=== PATIENT | male | born 1935 | race Caucasian/White ===

== ENCOUNTER 2021-06-08 08:37 | Inpatient (IN) | payer MEDICARE, BC ==
[2021-06-08 09:38] LABS: ALT (SGPT) 30 U/L (8-55); AST (SGOT) 31 U/L (5-34); Albumin 3.5 g/dL (3.4-4.8); Alkaline Phosphatase 104 U/L (40-110); Anion Gap 18 mmol/L (10-20); BUN (Urea Nitrogen) 19 mg/dL (8.4-25.7); Bilirubin, Total 1.3 mg/dL (0.2-1.2); Calc. Creatinine Clearance 0 mL/min (70-130); Carbon Dioxide 25 mmol/L (23-31); Chloride 99 mmol/L (98-107); Globulin 3.6 g/dL (2.4-3.5); Glucose 137 mg/dL (83-110); Protein, Total 7.1 g/dL (5.8-8.1); Sodium 138 mmol/L (136-145)
[2021-06-08] MEDS ORDERED: Morphine 4 MG/ML VIAL ONE (09:45)
[2021-06-08 09:50] LABS: #Eosinphils 0.1 10x3/uL (0.0-0.5); #Monocytes 0.8 10x3/uL (0.0-1.1); #Neutrophils 12.9 10x3/uL (1.5-8.4); %Basophils 0.3 % (0.0-2.0); %Eosinophils 0.4 % (0.0-6.0); %Lymphocytes 2.8 % (18.0-47.0); %Monocytes 5.4 % (0.0-10.0); %Neutrophils 90.7 % (40.0-75.0); Hemoglobin 11.4 g/dL (13.5-17.5); Mean Corpuscular HGB CONC 31.1 g/dL (32.0-36.0); Mean Corpuscular Hemoglobin 25.4 pg (27.0-33.0); Mean Corpuscular Volume 81.7 fl (81.2-95.1); Mean Platelet Volume 9.1 fl (7.4-10.4); Platelet Count 315 10x3/uL (150-450); RBC Distribution Width 19.9 % (11.5-14.5); Red Blood Cell (RBC) Count 4.48 10x6/uL (4.32-5.72); White Blood Cell (WBC) Count 14.2 10x3/uL (3.5-10.5)
[2021-06-08] MEDS ORDERED: Furosemide 40 MG/4 ML VIAL ONE (12:13)
[2021-06-08 12:52] LABS: SARS-CoV-2 NAA Rapid Test DETECTED (NotDetected)
[2021-06-08] MEDS ORDERED: VANCOMYCIN 1.75 GM/350 ML BAG 1.75 GM in Premix Bag 1 BAG IVPB SCH (13:00)
[2021-06-08 13:50] LABS: Bilirubin Neg (Negative); Blood, Urine Negative (Negative); Clarity Slightly Cloudy (Clear); Glucose, Urine (Dipstick) Normal (Negative); Ketone, Urine Negative (Negative); Leukocyte Negative (Negative); Nitrite Negative (Negative); Protein, Urine (Dipstick) 30 mg/dl (Neg-Trace)
[2021-06-08 14:03] LABS: Bacteria/HPF Rare-Few HPF (None Seen); RBC/HPF 0-3 HPF (0-3); Squamous Epithelial 0-3 HPF (0-3); WBC/HPF 0-3 HPF (0-3)
[2021-06-08] MEDS ORDERED: metroNIDAZOLE 500 MG/100 ML BAG ONE (14:07)
[2021-06-08] MEDS ORDERED: Ondansetron ODT 4 MG TAB PO PRN (16:35)
[2021-06-08] MEDS ORDERED: Acetaminophen 325 MG TAB PO PRN (16:35)
[2021-06-08] MEDS ORDERED: Guaifenesin DM 100-10/5 ML UDCUP PO PRN (16:35)
[2021-06-08] MEDS ORDERED: Ondansetron PF 4 MG/2 ML Vial IVP PRN (16:35)
[2021-06-08] MEDS ORDERED: Acetaminophen 650 MG Suppository PR PRN (16:35)
[2021-06-08] MEDS ORDERED: Vancomycin 1 GM in Premix Bag 1 BAG IVPB SCH (16:45)
[2021-06-08] MEDS ORDERED: Albuterol 200 PUFF (6.7GM INHALER) INH PRN (17:46)
[2021-06-08] MEDS ORDERED: Meropenem 1 GM in Sodium Chloride 0.9% 100 ML IVPB SCH ×2 (18:00→21:00)
[2021-06-08] MEDS ORDERED: Vancomycin HCl 1 GM in Sodium Chloride 0.9% 250 ML 250 ML IVPB SCH (18:00)
[2021-06-08] MEDS ORDERED: Dexamethasone 4 mg/ml Vial SLOW IVP SCH ×2 (18:00→21:00)
[2021-06-08] MEDS ORDERED: Vancomycin 1.5 GRAM/300 ML BAG 1.5 GM in Premix Bag 1 BAG IVPB SCH (18:00)
[2021-06-08 18:01] LABS: Actual Bicarbonate (HCO3a) 26.1 mEq/L (22-28); Base Excess (BEa) 0.4 mEq/L (-2.0 to +3.0); CO2 Tension 46.4 mmHg (35.0-45.0); Calcium, Ionized (arterial) 1.16 mmol/L (1.12-1.30); Carboxyhemoglobin (COHb) 0.3 gm% (0.0-3.0); Hemoglobin (Hb) 11.7 g/dL (14.0-18.0); O2 Tension (PaO2), arterial 140.9 mmHg (> 60.0); Potassium - ABG Lab 3.7 mmol/L (3.70-5.30); Puncture Site LRA; pH, Arterial 7.37 (7.35-7.45)
[2021-06-08 19:32] LABS: Legionella Urinary Ag Negative (Negative); Strep pneumo Urine Ag NEGATIVE (NEGATIVE)
[2021-06-08] MEDS ORDERED: Meropenem 1 GM in Admixture Fee 1 EACH IVPB SCH (22:00)
[2021-06-08] MEDS ORDERED: Meropenem 2 GM in Admixture Fee 1 EACH IVPB SCH (22:00)
[2021-06-09 04:10] LABS: Hemoglobin 10.3 g/dL (13.5-17.5); Mean Corpuscular HGB CONC 31.4 g/dL (32.0-36.0); Mean Corpuscular Hemoglobin 25.7 pg (27.0-33.0); Mean Corpuscular Volume 81.8 fl (81.2-95.1); Mean Platelet Volume 9.9 fl (7.4-10.4); Platelet Count 329 10x3/uL (150-450); RBC Distribution Width 19.8 % (11.5-14.5); Red Blood Cell (RBC) Count 4.01 10x6/uL (4.32-5.72); White Blood Cell (WBC) Count 20.7 10x3/uL (3.5-10.5)
[2021-06-09 04:11] LABS: Anion Gap 16 mmol/L (10-20); BUN (Urea Nitrogen) 19 mg/dL (8.4-25.7); CRP (Inflammatory) 26.01 mg/dL (= or < 0.5); Calc. Creatinine Clearance 62 mL/min (70-130); Calcium 8.8 mg/dL (7.8-10.44); Carbon Dioxide 24 mmol/L (23-31); Chloride 101 mmol/L (98-107); Glucose 152 mg/dL (83-110); Potassium 4.4 mmol/L (3.5-5.1); Sodium 137 mmol/L (136-145)
[2021-06-09 05:14] LABS: MDiff Complete? YES
[2021-06-09 05:16] LABS: Platelet Morphology Comment Appears Adequate
[2021-06-09 05:18] LABS: Band 7 % (5-11); Lymphocytes 2 % (21-51); Monocytes 3 % (0-10); Neutrophil 88 % (42-75)
[2021-06-09] MEDS: Meropenem 1 GM in Sodium Chloride 0.9% 100 ML IVPB SCH ×2 (06:18→16:37)
[2021-06-09] MEDS ORDERED: Insulin Regular 300 UNITS/3 ML VIAL SC PRN ×2 (07:32)
[2021-06-09] MEDS ORDERED: Dextrose 50% Abboject 50 ML SYRINGE SLOW IVP PRN (07:32)
[2021-06-09] MEDS ORDERED: Dextrose 5% in Water 1,000 ML IV PRN (07:32)
[2021-06-09] MEDS: Azithromycin 500 MG in Sodium Chloride 0.9% 250 ML 250 ML IVPB SCH (08:32)
[2021-06-09] MEDS ORDERED: Ipratropium Bromide 2.5 ml Neb NEB PRN (09:38)
[2021-06-09] MEDS ORDERED: Amiodarone 200 MG TAB PO SCH (09:45)
[2021-06-09] MEDS ORDERED: Levothyroxine Sodium 50 MCG TAB PO SCH (09:45)
[2021-06-09] MEDS ORDERED: Dutasteride 0.5 MG CAP PO SCH (09:45)
[2021-06-09] MEDS ORDERED: Tamsulosin HCl 0.4 MG CAP PO SCH (09:45)
[2021-06-09] MEDS ORDERED: Furosemide 40 MG TAB PO SCH ×2 (09:45→21:00)
[2021-06-09] MEDS ORDERED: Liothyronine Sodium 5 MCG TAB PO SCH (09:45)
[2021-06-09] MEDS ORDERED: Benzonatate 100 MG CAP PO PRN (09:50)
[2021-06-09] MEDS ORDERED: Furosemide 40 MG/4 ML VIAL SLOW IVP SCH (10:00)
[2021-06-09] MEDS ORDERED: Ventolin HFA Inhaler 60 PUFF INHALER INH PRN (10:01)
[2021-06-09] MEDS: Furosemide 40 MG/4 ML VIAL SLOW IVP SCH (14:10)
[2021-06-09] MEDS: Vancomycin HCl 1 GM in Sodium Chloride 0.9% 250 ML 250 ML IVPB SCH (17:38)
[2021-06-09] MEDS: Calcium Carbonate 500 MG ChewTAB PO SCH (21:01)
[2021-06-09] MEDS: Atorvastatin Calcium 40 MG TAB PO SCH (21:01)
[2021-06-09] MEDS: guaiFENesin ER 600 MG TAB PO SCH (21:01)
[2021-06-10 03:39] LABS: #Eosinphils 0.3 10x3/uL (0.0-0.5); #Monocytes 1.1 10x3/uL (0.0-1.1); #Neutrophils 15.3 10x3/uL (1.5-8.4); %Basophils 0.1 % (0.0-2.0); %Eosinophils 1.6 % (0.0-6.0); %Lymphocytes 4.6 % (18.0-47.0); %Neutrophils 87.1 % (40.0-75.0); Hemoglobin 10.4 g/dL (13.5-17.5); Mean Corpuscular Hemoglobin 25.9 pg (27.0-33.0); Mean Platelet Volume 9.2 fl (7.4-10.4); Platelet Count 296 10x3/uL (150-450); RBC Distribution Width 19.5 % (11.5-14.5); Red Blood Cell (RBC) Count 4.01 10x6/uL (4.32-5.72); White Blood Cell (WBC) Count 17.5 10x3/uL (3.5-10.5)
[2021-06-10 03:45] LABS: Anion Gap 13 mmol/L (10-20); BUN (Urea Nitrogen) 21 mg/dL (8.4-25.7); CRP (Inflammatory) 23.56 mg/dL (= or < 0.5); Calc. Creatinine Clearance 0 mL/min (70-130); Calcium 8.6 mg/dL (7.8-10.44); Carbon Dioxide 28 mmol/L (23-31); Chloride 100 mmol/L (98-107); Glucose 109 mg/dL (83-110); Potassium 3.6 mmol/L (3.5-5.1); Sodium 137 mmol/L (136-145)
[2021-06-10 04:29] LABS: Magnesium 2.2 mg/dL (1.6-2.6)
[2021-06-10] MEDS ORDERED: Potassium Chloride 20 MEQ TAB PO SCH (05:00)
[2021-06-10] MEDS: Furosemide 40 MG/4 ML VIAL SLOW IVP SCH ×2 (05:01→13:01)
[2021-06-10] MEDS: Levothyroxine Sodium 50 MCG TAB PO SCH (05:02)
[2021-06-10] MEDS: Liothyronine Sodium 5 MCG TAB PO SCH (05:02)
[2021-06-10] MEDS: Meropenem 1 GM in Sodium Chloride 0.9% 100 ML IVPB SCH ×3 (05:02→20:04)
[2021-06-10] MEDS: Zinc Sulfate 220 MG CAP PO SCH (08:23)
[2021-06-10] MEDS: guaiFENesin ER 600 MG TAB PO SCH ×2 (08:23→20:04)
[2021-06-10] MEDS: Cholecalciferol 1,000 UNITS (25 MCG) TAB PO SCH (08:24)
[2021-06-10] MEDS: Amiodarone 200 MG TAB PO SCH (08:24)
[2021-06-10] MEDS: Ascorbic Acid 500 mg Chewable Tablet PO SCH (08:24)
[2021-06-10] MEDS: Multivitamin W/ Minerals 1 TAB PO SCH (08:24)
[2021-06-10] MEDS: Tamsulosin HCl 0.4 MG CAP PO SCH (08:24)
[2021-06-10] MEDS: Calcium Carbonate 500 MG ChewTAB PO SCH ×2 (08:24→20:04)
[2021-06-10] MEDS: Dutasteride 0.5 MG CAP PO SCH (08:25)
[2021-06-10] MEDS: Fish Oil 1,000 MG CAP PO SCH (08:25)
[2021-06-10] MEDS: Azithromycin 500 MG in Sodium Chloride 0.9% 250 ML 250 ML IVPB SCH (08:28)
[2021-06-10] MEDS ORDERED: Cholecalciferol (Vitamin D3) 400 UNITS TAB PO SCH (09:00)
[2021-06-10] MEDS: Vancomycin HCl 1 GM in Sodium Chloride 0.9% 250 ML 250 ML IVPB SCH (11:41)
[2021-06-10] MEDS ORDERED: Sodium Chloride 0.9% 100 ML ONE (20:02)
[2021-06-10] MEDS ORDERED: Meropenem 1 GM VIAL ONE (20:02)
[2021-06-10] MEDS: Atorvastatin Calcium 40 MG TAB PO SCH (20:04)
[2021-06-11 05:21] LABS: #Eosinphils 0.4 10x3/uL (0.0-0.5); #Monocytes 0.9 10x3/uL (0.0-1.1); #Neutrophils 12.8 10x3/uL (1.5-8.4); %Basophils 0.3 % (0.0-2.0); %Eosinophils 2.5 % (0.0-6.0); %Lymphocytes 5.8 % (18.0-47.0); %Monocytes 6.2 % (0.0-10.0); %Neutrophils 84.4 % (40.0-75.0); Hemoglobin 10.1 g/dL (13.5-17.5); Mean Corpuscular HGB CONC 31.8 g/dL (32.0-36.0); Mean Corpuscular Hemoglobin 25.8 pg (27.0-33.0); Mean Corpuscular Volume 81.1 fl (81.2-95.1); Mean Platelet Volume 9.1 fl (7.4-10.4); Platelet Count 301 10x3/uL (150-450); RBC Distribution Width 19.6 % (11.5-14.5); Red Blood Cell (RBC) Count 3.92 10x6/uL (4.32-5.72); White Blood Cell (WBC) Count 15.1 10x3/uL (3.5-10.5)
[2021-06-11] MEDS: Meropenem 1 GM in Sodium Chloride 0.9% 100 ML IVPB SCH ×3 (05:42→21:00)
[2021-06-11] MEDS: Levothyroxine Sodium 50 MCG TAB PO SCH (05:42)
[2021-06-11] MEDS: Furosemide 40 MG/4 ML VIAL SLOW IVP SCH ×2 (05:42→14:20)
[2021-06-11 05:45] LABS: Anion Gap 12 mmol/L (10-20); BUN (Urea Nitrogen) 22 mg/dL (8.4-25.7); CRP (Inflammatory) 18.38 mg/dL (= or < 0.5); Calc. Creatinine Clearance 75 mL/min (70-130); Calcium 8.5 mg/dL (7.8-10.44); Carbon Dioxide 30 mmol/L (23-31); Chloride 96 mmol/L (98-107); Glucose 140 mg/dL (83-110); Potassium 3.7 mmol/L (3.5-5.1); Sodium 134 mmol/L (136-145); Vancomycin, Trough 13.5 ug/mL
[2021-06-11] MEDS: Liothyronine Sodium 5 MCG TAB PO SCH (05:45)
[2021-06-11] MEDS: Vancomycin HCl 1 GM in Sodium Chloride 0.9% 250 ML 250 ML IVPB SCH (05:50)
[2021-06-11] MEDS: Amiodarone 200 MG TAB PO SCH (09:06)
[2021-06-11] MEDS: Azithromycin 500 MG in Sodium Chloride 0.9% 250 ML 250 ML IVPB SCH (09:06)
[2021-06-11] MEDS: Ascorbic Acid 500 mg Chewable Tablet PO SCH (09:09)
[2021-06-11] MEDS: Tamsulosin HCl 0.4 MG CAP PO SCH (09:10)
[2021-06-11] MEDS: Multivitamin W/ Minerals 1 TAB PO SCH (09:10)
[2021-06-11] MEDS: guaiFENesin ER 600 MG TAB PO SCH ×2 (09:11→20:42)
[2021-06-11] MEDS: Cholecalciferol 1,000 UNITS (25 MCG) TAB PO SCH (09:12)
[2021-06-11] MEDS: Calcium Carbonate 500 MG ChewTAB PO SCH ×2 (09:13→20:42)
[2021-06-11] MEDS: Zinc Sulfate 220 MG CAP PO SCH (09:13)
[2021-06-11] MEDS: Fish Oil 1,000 MG CAP PO SCH (09:47)
[2021-06-11] MEDS: Dutasteride 0.5 MG CAP PO SCH (09:47)
[2021-06-11] MEDS: Enoxaparin Sodium 40 MG/0.4 ML SYRINGE SC SCH ×3 (14:25→15:18)
[2021-06-11] MEDS: Atorvastatin Calcium 40 MG TAB PO SCH (20:42)
[2021-06-12] MEDS: Vancomycin HCl 1 GM in Sodium Chloride 0.9% 250 ML 250 ML IVPB SCH
[2021-06-12 03:51] LABS: #Basophils 0.1 10x3/uL (0.0-0.2); #Eosinphils 0.5 10x3/uL (0.0-0.5); #Monocytes 1.1 10x3/uL (0.0-1.1); #Neutrophils 12.7 10x3/uL (1.5-8.4); %Basophils 0.3 % (0.0-2.0); %Eosinophils 3.2 % (0.0-6.0); %Lymphocytes 5.4 % (18.0-47.0); %Neutrophils 83.1 % (40.0-75.0); Hemoglobin 10.3 g/dL (13.5-17.5); Mean Corpuscular HGB CONC 31.4 g/dL (32.0-36.0); Mean Corpuscular Hemoglobin 25.4 pg (27.0-33.0); Mean Corpuscular Volume 80.8 fl (81.2-95.1); Mean Platelet Volume 9.1 fl (7.4-10.4); Platelet Count 315 10x3/uL (150-450); RBC Distribution Width 19.5 % (11.5-14.5); Red Blood Cell (RBC) Count 4.06 10x6/uL (4.32-5.72); White Blood Cell (WBC) Count 15.3 10x3/uL (3.5-10.5)
[2021-06-12 03:59] LABS: Anion Gap 15 mmol/L (10-20); BUN (Urea Nitrogen) 17 mg/dL (8.4-25.7); CRP (Inflammatory) 17.44 mg/dL (= or < 0.5); Calc. Creatinine Clearance 93 mL/min (70-130); Calcium 8.3 mg/dL (7.8-10.44); Carbon Dioxide 29 mmol/L (23-31); Chloride 99 mmol/L (98-107); Glucose 118 mg/dL (83-110); Potassium 3.5 mmol/L (3.5-5.1); Sodium 139 mmol/L (136-145)
[2021-06-12] MEDS: Furosemide 40 MG/4 ML VIAL SLOW IVP SCH ×2 (05:48→13:57)
[2021-06-12] MEDS: Meropenem 1 GM in Sodium Chloride 0.9% 100 ML IVPB SCH ×3 (05:48→21:05)
[2021-06-12] MEDS: Levothyroxine Sodium 50 MCG TAB PO SCH (05:48)
[2021-06-12] MEDS: Liothyronine Sodium 5 MCG TAB PO SCH (05:48)
[2021-06-12] MEDS: Zinc Sulfate 220 MG CAP PO SCH (08:15)
[2021-06-12] MEDS: Multivitamin W/ Minerals 1 TAB PO SCH (08:15)
[2021-06-12] MEDS: Calcium Carbonate 500 MG ChewTAB PO SCH ×2 (08:15→20:24)
[2021-06-12] MEDS: guaiFENesin ER 600 MG TAB PO SCH ×2 (08:15→20:25)
[2021-06-12] MEDS: Amiodarone 200 MG TAB PO SCH (08:15)
[2021-06-12] MEDS: Tamsulosin HCl 0.4 MG CAP PO SCH (08:15)
[2021-06-12] MEDS: Ascorbic Acid 500 mg Chewable Tablet PO SCH (08:15)
[2021-06-12] MEDS: Cholecalciferol 1,000 UNITS (25 MCG) TAB PO SCH (08:15)
[2021-06-12] MEDS: Fish Oil 1,000 MG CAP PO SCH (08:16)
[2021-06-12] MEDS: Dutasteride 0.5 MG CAP PO SCH (08:16)
[2021-06-12] MEDS: Azithromycin 500 MG in Sodium Chloride 0.9% 250 ML 250 ML IVPB SCH (08:20)
[2021-06-12] MEDS: CICLOPIROX TOP SCH ×2 (15:48→15:49)
[2021-06-12] MEDS: Atorvastatin Calcium 40 MG TAB PO SCH (20:25)
[2021-06-13 03:39] LABS: #Eosinphils 0.7 10x3/uL (0.0-0.5); #Monocytes 1.2 10x3/uL (0.0-1.1); #Neutrophils 12.9 10x3/uL (1.5-8.4); %Basophils 0.3 % (0.0-2.0); %Eosinophils 4.2 % (0.0-6.0); %Lymphocytes 6.9 % (18.0-47.0); %Monocytes 7.4 % (0.0-10.0); %Neutrophils 80.4 % (40.0-75.0); Hemoglobin 9.9 g/dL (13.5-17.5); Mean Corpuscular HGB CONC 31.3 g/dL (32.0-36.0); Mean Corpuscular Volume 79.8 fl (81.2-95.1); Mean Platelet Volume 9.2 fl (7.4-10.4); Platelet Count 327 10x3/uL (150-450); RBC Distribution Width 19.5 % (11.5-14.5); Red Blood Cell (RBC) Count 3.96 10x6/uL (4.32-5.72)
[2021-06-13] MEDS: Levothyroxine Sodium 50 MCG TAB PO SCH (05:02)
[2021-06-13] MEDS: Meropenem 1 GM in Sodium Chloride 0.9% 100 ML IVPB SCH ×3 (05:02→21:41)
[2021-06-13] MEDS: Liothyronine Sodium 5 MCG TAB PO SCH (05:02)
[2021-06-13 05:17] LABS: Anion Gap 16 mmol/L (10-20); BUN (Urea Nitrogen) 19 mg/dL (8.4-25.7); CRP (Inflammatory) 17.75 mg/dL (= or < 0.5); Calc. Creatinine Clearance 83 mL/min (70-130); Calcium 8.5 mg/dL (7.8-10.44); Carbon Dioxide 29 mmol/L (23-31); Chloride 97 mmol/L (98-107); Glucose 128 mg/dL (83-110); Potassium 3.6 mmol/L (3.5-5.1); Sodium 138 mmol/L (136-145)
[2021-06-13] MEDS: Furosemide 40 MG/4 ML VIAL SLOW IVP SCH ×2 (05:52→13:02)
[2021-06-13] MEDS: Calcium Carbonate 500 MG ChewTAB PO SCH ×2 (08:18→20:30)
[2021-06-13] MEDS: Dutasteride 0.5 MG CAP PO SCH (08:18)
[2021-06-13] MEDS: Amiodarone 200 MG TAB PO SCH (08:18)
[2021-06-13] MEDS: Zinc Sulfate 220 MG CAP PO SCH (08:18)
[2021-06-13] MEDS: Enoxaparin Sodium 40 MG/0.4 ML SYRINGE SC SCH (08:20)
[2021-06-13] MEDS: Tamsulosin HCl 0.4 MG CAP PO SCH (08:20)
[2021-06-13] MEDS: guaiFENesin ER 600 MG TAB PO SCH ×2 (08:20→20:30)
[2021-06-13] MEDS: Multivitamin W/ Minerals 1 TAB PO SCH (08:20)
[2021-06-13] MEDS: Fish Oil 1,000 MG CAP PO SCH (08:20)
[2021-06-13] MEDS: Ascorbic Acid 500 mg Chewable Tablet PO SCH (08:20)
[2021-06-13] MEDS: Cholecalciferol 1,000 UNITS (25 MCG) TAB PO SCH (08:20)
[2021-06-13] MEDS: Atorvastatin Calcium 40 MG TAB PO SCH (20:30)
[2021-06-14 04:37] LABS: Anion Gap 16 mmol/L (10-20); BUN (Urea Nitrogen) 17 mg/dL (8.4-25.7); CRP (Inflammatory) 15.95 mg/dL (= or < 0.5); Calc. Creatinine Clearance 86 mL/min (70-130); Calcium 8.5 mg/dL (7.8-10.44); Carbon Dioxide 31 mmol/L (23-31); Chloride 95 mmol/L (98-107); Glucose 115 mg/dL (83-110); Potassium 3.4 mmol/L (3.5-5.1); Sodium 139 mmol/L (136-145)
[2021-06-14 04:41] LABS: #Basophils 0.1 10x3/uL (0.0-0.2); #Eosinphils 0.7 10x3/uL (0.0-0.5); #Monocytes 1.1 10x3/uL (0.0-1.1); #Neutrophils 12.1 10x3/uL (1.5-8.4); %Basophils 0.4 % (0.0-2.0); %Eosinophils 4.6 % (0.0-6.0); %Lymphocytes 8.1 % (18.0-47.0); %Monocytes 6.9 % (0.0-10.0); %Neutrophils 78.8 % (40.0-75.0); Hemoglobin 9.7 g/dL (13.5-17.5); Mean Corpuscular HGB CONC 31.8 g/dL (32.0-36.0); Mean Corpuscular Hemoglobin 25.4 pg (27.0-33.0); Mean Corpuscular Volume 79.8 fl (81.2-95.1); Mean Platelet Volume 9.2 fl (7.4-10.4); Platelet Count 307 10x3/uL (150-450); RBC Distribution Width 19.6 % (11.5-14.5); Red Blood Cell (RBC) Count 3.82 10x6/uL (4.32-5.72); White Blood Cell (WBC) Count 15.3 10x3/uL (3.5-10.5)
[2021-06-14] MEDS: Liothyronine Sodium 5 MCG TAB PO SCH (05:03)
[2021-06-14] MEDS: Levothyroxine Sodium 50 MCG TAB PO SCH (05:03)
[2021-06-14] MEDS: Furosemide 40 MG/4 ML VIAL SLOW IVP SCH ×2 (05:22→13:44)
[2021-06-14] MEDS: Meropenem 1 GM in Sodium Chloride 0.9% 100 ML IVPB SCH ×3 (05:22→21:00)
[2021-06-14] MEDS: Tamsulosin HCl 0.4 MG CAP PO SCH (08:25)
[2021-06-14] MEDS: Zinc Sulfate 220 MG CAP PO SCH (08:25)
[2021-06-14] MEDS: guaiFENesin ER 600 MG TAB PO SCH ×2 (08:25→21:00)
[2021-06-14] MEDS: Multivitamin W/ Minerals 1 TAB PO SCH (08:25)
[2021-06-14] MEDS: Cholecalciferol 1,000 UNITS (25 MCG) TAB PO SCH (08:25)
[2021-06-14] MEDS: Ascorbic Acid 500 mg Chewable Tablet PO SCH (08:25)
[2021-06-14] MEDS: Enoxaparin Sodium 40 MG/0.4 ML SYRINGE SC SCH (08:25)
[2021-06-14] MEDS: Amiodarone 200 MG TAB PO SCH (08:25)
[2021-06-14] MEDS: Calcium Carbonate 500 MG ChewTAB PO SCH ×2 (08:25→21:00)
[2021-06-14] MEDS: Fish Oil 1,000 MG CAP PO SCH (08:26)
[2021-06-14] MEDS: Dutasteride 0.5 MG CAP PO SCH (08:26)
[2021-06-14 12:30] LABS: Hemoglobin A1c 6.3 % (4.0-6.0)
[2021-06-14] MEDS ORDERED: Electrolyte Replacement Protocol 1 EACH FS PRN (16:00)
[2021-06-14] MEDS ORDERED: Potassium Chloride 20 MEQ TAB PO SCH (17:00)
[2021-06-14] MEDS: Atorvastatin Calcium 40 MG TAB PO SCH (21:00)
[2021-06-15 04:30] LABS: #Basophils 0.1 10x3/uL (0.0-0.2); #Eosinphils 0.9 10x3/uL (0.0-0.5); #Monocytes 1.1 10x3/uL (0.0-1.1); #Neutrophils 12.9 10x3/uL (1.5-8.4); %Basophils 0.4 % (0.0-2.0); %Eosinophils 5.4 % (0.0-6.0); %Lymphocytes 6.6 % (18.0-47.0); %Neutrophils 79.3 % (40.0-75.0); Hemoglobin 9.8 g/dL (13.5-17.5); Mean Corpuscular HGB CONC 31.8 g/dL (32.0-36.0); Mean Corpuscular Hemoglobin 25.4 pg (27.0-33.0); Mean Corpuscular Volume 79.8 fl (81.2-95.1); Mean Platelet Volume 9.3 fl (7.4-10.4); Platelet Count 311 10x3/uL (150-450); RBC Distribution Width 19.4 % (11.5-14.5); Red Blood Cell (RBC) Count 3.86 10x6/uL (4.32-5.72); White Blood Cell (WBC) Count 16.2 10x3/uL (3.5-10.5)
[2021-06-15 04:39] LABS: Anion Gap 14 mmol/L (10-20); BUN (Urea Nitrogen) 18 mg/dL (8.4-25.7); CRP (Inflammatory) 14.99 mg/dL (= or < 0.5); Calc. Creatinine Clearance 89 mL/min (70-130); Calcium 8.6 mg/dL (7.8-10.44); Carbon Dioxide 32 mmol/L (23-31); Chloride 95 mmol/L (98-107); Glucose 128 mg/dL (83-110); Potassium 3.6 mmol/L (3.5-5.1); Sodium 137 mmol/L (136-145)
[2021-06-15 04:58] LABS: Phosphorus 2.7 mg/dL (2.3-4.7)
[2021-06-15] MEDS ORDERED: Sodium Chloride 0.9% 100 ML ONE ×2 (05:14→05:15)
[2021-06-15] MEDS: Furosemide 40 MG/4 ML VIAL SLOW IVP SCH ×2 (05:19→13:27)
[2021-06-15] MEDS: Levothyroxine Sodium 50 MCG TAB PO SCH (05:19)
[2021-06-15] MEDS: Liothyronine Sodium 5 MCG TAB PO SCH (05:19)
[2021-06-15] MEDS: Meropenem 1 GM in Sodium Chloride 0.9% 100 ML IVPB SCH ×3 (05:19→20:53)
[2021-06-15] MEDS ORDERED: Cholecalciferol 1,000 UNITS (25 MCG) TAB ONE ×2 (08:18)
[2021-06-15] MEDS: Tamsulosin HCl 0.4 MG CAP PO SCH (08:24)
[2021-06-15] MEDS: Multivitamin W/ Minerals 1 TAB PO SCH (08:24)
[2021-06-15] MEDS: Zinc Sulfate 220 MG CAP PO SCH (08:24)
[2021-06-15] MEDS: Amiodarone 200 MG TAB PO SCH (08:24)
[2021-06-15] MEDS: Cholecalciferol 1,000 UNITS (25 MCG) TAB PO SCH (08:25)
[2021-06-15] MEDS: Ascorbic Acid 500 mg Chewable Tablet PO SCH (08:25)
[2021-06-15] MEDS: Dutasteride 0.5 MG CAP PO SCH (08:25)
[2021-06-15] MEDS: Calcium Carbonate 500 MG ChewTAB PO SCH ×2 (08:25→20:52)
[2021-06-15] MEDS: Fish Oil 1,000 MG CAP PO SCH (08:26)
[2021-06-15] MEDS: guaiFENesin ER 600 MG TAB PO SCH ×2 (08:26→20:53)
[2021-06-15] MEDS: Enoxaparin Sodium 40 MG/0.4 ML SYRINGE SC SCH (08:26)
[2021-06-15] MEDS: Atorvastatin Calcium 40 MG TAB PO SCH (20:53)
[2021-06-16 04:33] LABS: #Basophils 0.1 10x3/uL (0.0-0.2); #Eosinphils 1.2 10x3/uL (0.0-0.5); #Monocytes 0.9 10x3/uL (0.0-1.1); %Basophils 0.5 % (0.0-2.0); %Eosinophils 8.4 % (0.0-6.0); %Lymphocytes 7.7 % (18.0-47.0); %Monocytes 6.1 % (0.0-10.0); %Neutrophils 75.4 % (40.0-75.0); Hemoglobin 9.7 g/dL (13.5-17.5); Mean Corpuscular HGB CONC 31.4 g/dL (32.0-36.0); Mean Corpuscular Hemoglobin 25.3 pg (27.0-33.0); Mean Corpuscular Volume 80.5 fl (81.2-95.1); Mean Platelet Volume 9.5 fl (7.4-10.4); Platelet Count 326 10x3/uL (150-450); RBC Distribution Width 19.4 % (11.5-14.5); Red Blood Cell (RBC) Count 3.84 10x6/uL (4.32-5.72); White Blood Cell (WBC) Count 14.6 10x3/uL (3.5-10.5)
[2021-06-16 05:03] LABS: Anion Gap 13 mmol/L (10-20); BUN (Urea Nitrogen) 17 mg/dL (8.4-25.7); Calc. Creatinine Clearance 85 mL/min (70-130); Calcium 8.7 mg/dL (7.8-10.44); Carbon Dioxide 36 mmol/L (23-31); Chloride 93 mmol/L (98-107); Glucose 116 mg/dL (83-110); Potassium 3.5 mmol/L (3.5-5.1); Sodium 138 mmol/L (136-145)
[2021-06-16] MEDS ORDERED: Potassium Chloride 20 MEQ TAB PO SCH (06:00)
[2021-06-16] MEDS ORDERED: Meropenem 1 GM VIAL ONE (06:26)
[2021-06-16] MEDS: Levothyroxine Sodium 50 MCG TAB PO SCH (06:29)
[2021-06-16] MEDS: Furosemide 40 MG/4 ML VIAL SLOW IVP SCH ×2 (06:29→14:00)
[2021-06-16] MEDS: Liothyronine Sodium 5 MCG TAB PO SCH (06:29)
[2021-06-16] MEDS: Meropenem 1 GM in Sodium Chloride 0.9% 100 ML IVPB SCH ×3 (06:29→21:18)
[2021-06-16] MEDS ORDERED: CYANOCOBALAMIN INH SCH (09:00)
[2021-06-16] MEDS: Ascorbic Acid 500 mg Chewable Tablet PO SCH (09:26)
[2021-06-16] MEDS: Amiodarone 200 MG TAB PO SCH (09:27)
[2021-06-16] MEDS: Tamsulosin HCl 0.4 MG CAP PO SCH (09:28)
[2021-06-16] MEDS: guaiFENesin ER 600 MG TAB PO SCH ×2 (09:29→21:18)
[2021-06-16] MEDS: Dutasteride 0.5 MG CAP PO SCH (09:31)
[2021-06-16] MEDS: Fish Oil 1,000 MG CAP PO SCH (09:32)
[2021-06-16] MEDS: Zinc Sulfate 220 MG CAP PO SCH (09:34)
[2021-06-16] MEDS: Cholecalciferol 1,000 UNITS (25 MCG) TAB PO SCH (09:35)
[2021-06-16] MEDS: Multivitamin W/ Minerals 1 TAB PO SCH (09:36)
[2021-06-16] MEDS: Calcium Carbonate 500 MG ChewTAB PO SCH ×2 (09:38→21:18)
[2021-06-16] MEDS: Enoxaparin Sodium 40 MG/0.4 ML SYRINGE SC SCH (09:38)
[2021-06-16] MEDS ORDERED: Polyethylene Glycol 3350 17 GM Packet PO PRN (15:54)
[2021-06-16] MEDS: Docusate 100 MG CAP PO PRN ×2 (17:11→21:18)
[2021-06-16] MEDS: Atorvastatin Calcium 40 MG TAB PO SCH (21:17)
[2021-06-17 04:11] LABS: #Basophils 0.1 10x3/uL (0.0-0.2); #Eosinphils 1.7 10x3/uL (0.0-0.5); #Monocytes 0.9 10x3/uL (0.0-1.1); #Neutrophils 11.8 10x3/uL (1.5-8.4); %Basophils 0.6 % (0.0-2.0); %Eosinophils 10.5 % (0.0-6.0); %Lymphocytes 7.7 % (18.0-47.0); %Monocytes 5.4 % (0.0-10.0); %Neutrophils 74.1 % (40.0-75.0); Hemoglobin 9.9 g/dL (13.5-17.5); Mean Corpuscular HGB CONC 31.6 g/dL (32.0-36.0); Mean Corpuscular Hemoglobin 25.5 pg (27.0-33.0); Mean Corpuscular Volume 80.7 fl (81.2-95.1); Mean Platelet Volume 9.5 fl (7.4-10.4); Platelet Count 335 10x3/uL (150-450); RBC Distribution Width 19.4 % (11.5-14.5); Red Blood Cell (RBC) Count 3.88 10x6/uL (4.32-5.72); White Blood Cell (WBC) Count 15.9 10x3/uL (3.5-10.5)
[2021-06-17 04:30] LABS: Anion Gap 14 mmol/L (10-20); BUN (Urea Nitrogen) 18 mg/dL (8.4-25.7); Calc. Creatinine Clearance 93 mL/min (70-130); Calcium 8.8 mg/dL (7.8-10.44); Carbon Dioxide 35 mmol/L (23-31); Chloride 94 mmol/L (98-107); Glucose 99 mg/dL (83-110); Potassium 3.7 mmol/L (3.5-5.1); Sodium 139 mmol/L (136-145)
[2021-06-17] MEDS: Levothyroxine Sodium 50 MCG TAB PO SCH (05:25)
[2021-06-17] MEDS: Liothyronine Sodium 5 MCG TAB PO SCH (05:25)
[2021-06-17] MEDS: Furosemide 40 MG/4 ML VIAL SLOW IVP SCH ×2 (05:25→13:15)
[2021-06-17] MEDS: Meropenem 1 GM in Sodium Chloride 0.9% 100 ML IVPB SCH ×3 (06:29→21:40)
[2021-06-17] MEDS ORDERED: Cholecalciferol 1,000 UNITS (25 MCG) TAB ONE (07:58)
[2021-06-17] MEDS: Enoxaparin Sodium 40 MG/0.4 ML SYRINGE SC SCH (08:09)
[2021-06-17] MEDS: Multivitamin W/ Minerals 1 TAB PO SCH (08:10)
[2021-06-17] MEDS: Zinc Sulfate 220 MG CAP PO SCH (08:10)
[2021-06-17] MEDS: Tamsulosin HCl 0.4 MG CAP PO SCH (08:10)
[2021-06-17] MEDS: Calcium Carbonate 500 MG ChewTAB PO SCH ×2 (08:10→20:02)
[2021-06-17] MEDS: Amiodarone 200 MG TAB PO SCH (08:10)
[2021-06-17] MEDS: Dutasteride 0.5 MG CAP PO SCH (08:10)
[2021-06-17] MEDS: Fish Oil 1,000 MG CAP PO SCH (08:10)
[2021-06-17] MEDS: Cholecalciferol 1,000 UNITS (25 MCG) TAB PO SCH (08:10)
[2021-06-17] MEDS: Ascorbic Acid 500 mg Chewable Tablet PO SCH (08:10)
[2021-06-17] MEDS: guaiFENesin ER 600 MG TAB PO SCH ×2 (08:10→20:02)
[2021-06-17] MEDS: Atorvastatin Calcium 40 MG TAB PO SCH (20:02)
[2021-06-17] MEDS: Docusate 100 MG CAP PO PRN (23:34)
[2021-06-18 03:55] LABS: #Basophils 0.1 10x3/uL (0.0-0.2); #Eosinphils 2.5 10x3/uL (0.0-0.5); #Neutrophils 11.9 10x3/uL (1.5-8.4); %Basophils 0.6 % (0.0-2.0); %Eosinophils 14.6 % (0.0-6.0); %Lymphocytes 7.5 % (18.0-47.0); %Monocytes 5.7 % (0.0-10.0); %Neutrophils 69.7 % (40.0-75.0); Hemoglobin 9.9 g/dL (13.5-17.5); Mean Corpuscular HGB CONC 31.2 g/dL (32.0-36.0); Mean Corpuscular Hemoglobin 25.1 pg (27.0-33.0); Mean Corpuscular Volume 80.5 fl (81.2-95.1); Mean Platelet Volume 9.4 fl (7.4-10.4); Platelet Count 338 10x3/uL (150-450); RBC Distribution Width 19.3 % (11.5-14.5); Red Blood Cell (RBC) Count 3.94 10x6/uL (4.32-5.72); White Blood Cell (WBC) Count 17.1 10x3/uL (3.5-10.5)
[2021-06-18 04:04] LABS: Anion Gap 15 mmol/L (10-20); BUN (Urea Nitrogen) 20 mg/dL (8.4-25.7); Calc. Creatinine Clearance 89 mL/min (70-130); Calcium 8.7 mg/dL (7.8-10.44); Carbon Dioxide 33 mmol/L (23-31); Chloride 93 mmol/L (98-107); Glucose 115 mg/dL (83-110); Potassium 3.7 mmol/L (3.5-5.1); Sodium 137 mmol/L (136-145)
[2021-06-18] MEDS: Meropenem 1 GM in Sodium Chloride 0.9% 100 ML IVPB SCH ×3 (05:47→21:33)
[2021-06-18] MEDS: Furosemide 40 MG/4 ML VIAL SLOW IVP SCH ×2 (05:47→13:15)
[2021-06-18] MEDS: Liothyronine Sodium 5 MCG TAB PO SCH (05:48)
[2021-06-18] MEDS: Levothyroxine Sodium 50 MCG TAB PO SCH (05:48)
[2021-06-18] MEDS: Enoxaparin Sodium 40 MG/0.4 ML SYRINGE SC SCH (08:16)
[2021-06-18] MEDS: Tamsulosin HCl 0.4 MG CAP PO SCH (08:18)
[2021-06-18] MEDS: Amiodarone 200 MG TAB PO SCH (08:19)
[2021-06-18] MEDS: Calcium Carbonate 500 MG ChewTAB PO SCH ×2 (08:19→21:33)
[2021-06-18] MEDS: Zinc Sulfate 220 MG CAP PO SCH (08:19)
[2021-06-18] MEDS: Multivitamin W/ Minerals 1 TAB PO SCH (08:19)
[2021-06-18] MEDS: guaiFENesin ER 600 MG TAB PO SCH ×2 (08:19→21:33)
[2021-06-18] MEDS: Ascorbic Acid 500 mg Chewable Tablet PO SCH (08:19)
[2021-06-18] MEDS: Cholecalciferol 1,000 UNITS (25 MCG) TAB PO SCH (08:20)
[2021-06-18] MEDS: Dutasteride 0.5 MG CAP PO SCH (08:22)
[2021-06-18] MEDS: Fish Oil 1,000 MG CAP PO SCH (08:23)
[2021-06-18 15:29] LABS: SARS-CoV-2 NAA Rapid Test DETECTED (NotDetected)
[2021-06-18] MEDS: Atorvastatin Calcium 40 MG TAB PO SCH (21:33)
[2021-06-18] MEDS ORDERED: Cyanocobalamin 1000 MCG/ML VIAL IM SCH (23:59)
[2021-06-19 05:02] LABS: Anion Gap 12 mmol/L (10-20); BUN (Urea Nitrogen) 21 mg/dL (8.4-25.7); Calc. Creatinine Clearance 98 mL/min (70-130); Calcium 8.5 mg/dL (7.8-10.44); Carbon Dioxide 34 mmol/L (23-31); Chloride 98 mmol/L (98-107); Glucose 117 mg/dL (83-110); Potassium 3.4 mmol/L (3.5-5.1); Sodium 141 mmol/L (136-145)
[2021-06-19] MEDS: Furosemide 40 MG/4 ML VIAL SLOW IVP SCH ×2 (05:02→14:20)
[2021-06-19] MEDS: Meropenem 1 GM in Sodium Chloride 0.9% 100 ML IVPB SCH ×3 (05:02→21:28)
[2021-06-19] MEDS: Liothyronine Sodium 5 MCG TAB PO SCH (05:03)
[2021-06-19] MEDS: Levothyroxine Sodium 50 MCG TAB PO SCH (05:03)
[2021-06-19 05:09] LABS: #Basophils 0.1 10x3/uL (0.0-0.2); #Eosinphils 2.9 10x3/uL (0.0-0.5); #Monocytes 0.9 10x3/uL (0.0-1.1); #Neutrophils 10.8 10x3/uL (1.5-8.4); %Basophils 0.6 % (0.0-2.0); %Eosinophils 17.9 % (0.0-6.0); %Lymphocytes 6.3 % (18.0-47.0); %Monocytes 5.7 % (0.0-10.0); %Neutrophils 67.6 % (40.0-75.0); Hemoglobin 9.6 g/dL (13.5-17.5); Mean Corpuscular HGB CONC 31.8 g/dL (32.0-36.0); Mean Corpuscular Hemoglobin 25.5 pg (27.0-33.0); Mean Corpuscular Volume 80.1 fl (81.2-95.1); Mean Platelet Volume 9.3 fl (7.4-10.4); Platelet Count 353 10x3/uL (150-450); RBC Distribution Width 19.4 % (11.5-14.5); Red Blood Cell (RBC) Count 3.77 10x6/uL (4.32-5.72)
[2021-06-19] MEDS: Potassium Chloride 20 MEQ TAB PO SCH ×2 (06:01→08:21)
[2021-06-19 06:06] LABS: Magnesium 2.2 mg/dL (1.6-2.6)
[2021-06-19] MEDS: guaiFENesin ER 600 MG TAB PO SCH ×2 (08:20→21:28)
[2021-06-19] MEDS: Enoxaparin Sodium 40 MG/0.4 ML SYRINGE SC SCH (08:20)
[2021-06-19] MEDS: Calcium Carbonate 500 MG ChewTAB PO SCH ×2 (08:20→21:28)
[2021-06-19] MEDS: Multivitamin W/ Minerals 1 TAB PO SCH (08:21)
[2021-06-19] MEDS: Fish Oil 1,000 MG CAP PO SCH (08:21)
[2021-06-19] MEDS: Tamsulosin HCl 0.4 MG CAP PO SCH (08:21)
[2021-06-19] MEDS: Cholecalciferol 1,000 UNITS (25 MCG) TAB PO SCH (08:21)
[2021-06-19] MEDS: Ascorbic Acid 500 mg Chewable Tablet PO SCH (08:21)
[2021-06-19] MEDS: Zinc Sulfate 220 MG CAP PO SCH (08:21)
[2021-06-19] MEDS: Amiodarone 200 MG TAB PO SCH (08:21)
[2021-06-19] MEDS: Dutasteride 0.5 MG CAP PO SCH (08:22)
[2021-06-19] MEDS: Cyanocobalamin 1000 MCG/ML VIAL IM SCH (09:56)
[2021-06-19] MEDS ORDERED: diphenhydrAMINE 25 MG CAP PO SCH (12:45)
[2021-06-19] MEDS: Atorvastatin Calcium 40 MG TAB PO SCH (21:28)
[2021-06-19] MEDS: diphenhydrAMINE 25 MG CAP PO PRN (21:28)
[2021-06-20] MEDS: Levothyroxine Sodium 50 MCG TAB PO SCH (04:29)
[2021-06-20] MEDS: Liothyronine Sodium 5 MCG TAB PO SCH (04:29)
[2021-06-20 04:43] LABS: Anion Gap 17 mmol/L (10-20); BUN (Urea Nitrogen) 18 mg/dL (8.4-25.7); Calc. Creatinine Clearance 92 mL/min (70-130); Calcium 8.8 mg/dL (7.8-10.44); Carbon Dioxide 33 mmol/L (23-31); Chloride 96 mmol/L (98-107); Glucose 115 mg/dL (83-110); Potassium 4.3 mmol/L (3.5-5.1); Sodium 142 mmol/L (136-145)
[2021-06-20] MEDS: Furosemide 40 MG/4 ML VIAL SLOW IVP SCH ×2 (05:27→13:55)
[2021-06-20] MEDS: Meropenem 1 GM in Sodium Chloride 0.9% 100 ML IVPB SCH ×3 (05:27→21:29)
[2021-06-20] MEDS: Amiodarone 200 MG TAB PO SCH (08:27)
[2021-06-20] MEDS: Calcium Carbonate 500 MG ChewTAB PO SCH ×2 (08:28→21:29)
[2021-06-20] MEDS: Cholecalciferol 1,000 UNITS (25 MCG) TAB PO SCH (08:28)
[2021-06-20] MEDS: Ascorbic Acid 500 mg Chewable Tablet PO SCH (08:28)
[2021-06-20] MEDS: Dutasteride 0.5 MG CAP PO SCH (08:29)
[2021-06-20] MEDS: guaiFENesin ER 600 MG TAB PO SCH ×2 (08:30→21:30)
[2021-06-20] MEDS: Fish Oil 1,000 MG CAP PO SCH (08:30)
[2021-06-20] MEDS: Enoxaparin Sodium 40 MG/0.4 ML SYRINGE SC SCH (08:30)
[2021-06-20] MEDS: Multivitamin W/ Minerals 1 TAB PO SCH (08:31)
[2021-06-20] MEDS: Tamsulosin HCl 0.4 MG CAP PO SCH (08:32)
[2021-06-20] MEDS: Zinc Sulfate 220 MG CAP PO SCH (08:32)
[2021-06-20] MEDS ORDERED: hydrOXYzine 25 MG TAB PO SCH (12:00)
[2021-06-20] MEDS: Atorvastatin Calcium 40 MG TAB PO SCH (21:29)
[2021-06-20] MEDS: diphenhydrAMINE 25 MG CAP PO PRN (22:04)
[2021-06-21] MEDS: Furosemide 40 MG/4 ML VIAL SLOW IVP SCH ×2 (04:49→14:24)
[2021-06-21] MEDS: Meropenem 1 GM in Sodium Chloride 0.9% 100 ML IVPB SCH ×3 (04:50→21:20)
[2021-06-21] MEDS: Levothyroxine Sodium 50 MCG TAB PO SCH (04:50)
[2021-06-21] MEDS: Liothyronine Sodium 5 MCG TAB PO SCH (04:53)
[2021-06-21] MEDS: Ascorbic Acid 500 mg Chewable Tablet PO SCH (08:25)
[2021-06-21] MEDS: Calcium Carbonate 500 MG ChewTAB PO SCH ×2 (08:25→21:19)
[2021-06-21] MEDS: Amiodarone 200 MG TAB PO SCH (08:25)
[2021-06-21] MEDS: Cholecalciferol 1,000 UNITS (25 MCG) TAB PO SCH ×2 (08:26→08:27)
[2021-06-21] MEDS: Dutasteride 0.5 MG CAP PO SCH (08:26)
[2021-06-21] MEDS: guaiFENesin ER 600 MG TAB PO SCH ×2 (08:26→21:19)
[2021-06-21] MEDS: Zinc Sulfate 220 MG CAP PO SCH (08:27)
[2021-06-21] MEDS: Enoxaparin Sodium 40 MG/0.4 ML SYRINGE SC SCH (08:27)
[2021-06-21] MEDS: Multivitamin W/ Minerals 1 TAB PO SCH (08:27)
[2021-06-21] MEDS: Fish Oil 1,000 MG CAP PO SCH (08:27)
[2021-06-21] MEDS: Tamsulosin HCl 0.4 MG CAP PO SCH (08:27)
[2021-06-21] MEDS: diphenhydrAMINE 25 MG CAP PO PRN (21:19)
[2021-06-21] MEDS: Atorvastatin Calcium 40 MG TAB PO SCH (21:20)
[2021-06-22 03:08] LABS: Hemoglobin 9.1 g/dL (13.5-17.5); Mean Corpuscular HGB CONC 31.1 g/dL (32.0-36.0); Mean Corpuscular Volume 80.5 fl (81.2-95.1); Mean Platelet Volume 9.6 fl (7.4-10.4); Platelet Count 356 10x3/uL (150-450); RBC Distribution Width 19.6 % (11.5-14.5); Red Blood Cell (RBC) Count 3.64 10x6/uL (4.32-5.72)
[2021-06-22 03:20] LABS: Anion Gap 13 mmol/L (10-20); BUN (Urea Nitrogen) 19 mg/dL (8.4-25.7); Calc. Creatinine Clearance 88 mL/min (70-130); Calcium 8.6 mg/dL (7.8-10.44); Carbon Dioxide 35 mmol/L (23-31); Chloride 96 mmol/L (98-107); Glucose 108 mg/dL (83-110); Potassium 4.4 mmol/L (3.5-5.1); Sodium 140 mmol/L (136-145)
[2021-06-22] MEDS: Meropenem 1 GM in Sodium Chloride 0.9% 100 ML IVPB SCH ×3 (05:50→20:31)
[2021-06-22] MEDS: Furosemide 40 MG/4 ML VIAL SLOW IVP SCH ×2 (05:50→14:10)
[2021-06-22] MEDS: Levothyroxine Sodium 50 MCG TAB PO SCH (05:50)
[2021-06-22] MEDS: Liothyronine Sodium 5 MCG TAB PO SCH (05:52)
[2021-06-22] MEDS: Enoxaparin Sodium 40 MG/0.4 ML SYRINGE SC SCH (08:24)
[2021-06-22] MEDS: Dutasteride 0.5 MG CAP PO SCH (08:25)
[2021-06-22] MEDS: Tamsulosin HCl 0.4 MG CAP PO SCH (08:25)
[2021-06-22] MEDS: Ascorbic Acid 500 mg Chewable Tablet PO SCH (08:25)
[2021-06-22] MEDS: Amiodarone 200 MG TAB PO SCH (08:25)
[2021-06-22] MEDS: Multivitamin W/ Minerals 1 TAB PO SCH (08:25)
[2021-06-22] MEDS: Calcium Carbonate 500 MG ChewTAB PO SCH ×2 (08:25→20:31)
[2021-06-22] MEDS: Zinc Sulfate 220 MG CAP PO SCH (08:25)
[2021-06-22] MEDS: guaiFENesin ER 600 MG TAB PO SCH ×2 (08:25→20:31)
[2021-06-22] MEDS: Fish Oil 1,000 MG CAP PO SCH (08:25)
[2021-06-22] MEDS: diphenhydrAMINE 25 MG CAP PO PRN (20:31)
[2021-06-22] MEDS: Atorvastatin Calcium 40 MG TAB PO SCH (20:31)
[2021-06-23] MEDS: Furosemide 40 MG/4 ML VIAL SLOW IVP SCH ×2 (05:34→13:23)
[2021-06-23] MEDS: Levothyroxine Sodium 50 MCG TAB PO SCH (05:35)
[2021-06-23] MEDS: Meropenem 1 GM in Sodium Chloride 0.9% 100 ML IVPB SCH ×3 (05:35→21:51)
[2021-06-23] MEDS: Liothyronine Sodium 5 MCG TAB PO SCH (05:35)
[2021-06-23] MEDS: Enoxaparin Sodium 40 MG/0.4 ML SYRINGE SC SCH (07:50)
[2021-06-23] MEDS: Calcium Carbonate 500 MG ChewTAB PO SCH ×2 (07:50→21:52)
[2021-06-23] MEDS: Zinc Sulfate 220 MG CAP PO SCH (07:51)
[2021-06-23] MEDS: Ascorbic Acid 500 mg Chewable Tablet PO SCH (07:51)
[2021-06-23] MEDS: guaiFENesin ER 600 MG TAB PO SCH ×2 (07:51→21:51)
[2021-06-23] MEDS: Amiodarone 200 MG TAB PO SCH (07:51)
[2021-06-23] MEDS: Tamsulosin HCl 0.4 MG CAP PO SCH (07:51)
[2021-06-23] MEDS: Multivitamin W/ Minerals 1 TAB PO SCH (07:51)
[2021-06-23] MEDS: Fish Oil 1,000 MG CAP PO SCH (07:52)
[2021-06-23] MEDS: Dutasteride 0.5 MG CAP PO SCH (07:53)
[2021-06-23] MEDS: Cholecalciferol 1,000 UNITS (25 MCG) TAB PO SCH (07:54)
[2021-06-23] MEDS: Atorvastatin Calcium 40 MG TAB PO SCH (21:51)
[2021-06-23] MEDS: Docusate 100 MG CAP PO PRN (21:56)
[2021-06-24] MEDS: diphenhydrAMINE 25 MG CAP PO PRN ×2 (03:25→21:09)
[2021-06-24 04:10] LABS: Anion Gap 14 mmol/L (10-20); BUN (Urea Nitrogen) 17 mg/dL (8.4-25.7); Calc. Creatinine Clearance 0 mL/min (70-130); Calcium 8.7 mg/dL (7.8-10.44); Carbon Dioxide 34 mmol/L (23-31); Chloride 96 mmol/L (98-107); Glucose 107 mg/dL (83-110); Potassium 4.3 mmol/L (3.5-5.1); Sodium 140 mmol/L (136-145)
[2021-06-24 04:16] LABS: Hemoglobin 9.3 g/dL (13.5-17.5); Mean Corpuscular HGB CONC 31.6 g/dL (32.0-36.0); Mean Corpuscular Hemoglobin 25.6 pg (27.0-33.0); Mean Platelet Volume 10.2 fl (7.4-10.4); Platelet Count 346 10x3/uL (150-450); RBC Distribution Width 19.7 % (11.5-14.5); Red Blood Cell (RBC) Count 3.63 10x6/uL (4.32-5.72); White Blood Cell (WBC) Count 15.2 10x3/uL (3.5-10.5)
[2021-06-24 04:50] LABS: MDiff Complete? YES
[2021-06-24 05:08] LABS: Eosinophils 26 % (0-10); Lymphocytes 11 % (21-51); Monocytes 7 % (0-10); Neutrophil 56 % (42-75)
[2021-06-24 05:10] LABS: Reflex for Review?? YES
[2021-06-24 05:20] LABS: Anisocytosis SLIGHT = 6-15 cells (100X) (0-5/hpf); Elliptocytes SLIGHT = 2-5 cells (100X) (0-1/hpf); Platelet Morphology Comment Appears Adequate; Schistocytes SLIGHT = 2-5 cells (100X) (0-1/hpf)
[2021-06-24] MEDS: Furosemide 40 MG/4 ML VIAL SLOW IVP SCH ×2 (06:13→13:32)
[2021-06-24] MEDS: Liothyronine Sodium 5 MCG TAB PO SCH (06:13)
[2021-06-24] MEDS: Levothyroxine Sodium 50 MCG TAB PO SCH (06:13)
[2021-06-24] MEDS: Meropenem 1 GM in Sodium Chloride 0.9% 100 ML IVPB SCH ×3 (06:14→21:09)
[2021-06-24] MEDS: Enoxaparin Sodium 40 MG/0.4 ML SYRINGE SC SCH (08:06)
[2021-06-24] MEDS: Tamsulosin HCl 0.4 MG CAP PO SCH (08:07)
[2021-06-24] MEDS: Calcium Carbonate 500 MG ChewTAB PO SCH ×2 (08:07→21:09)
[2021-06-24] MEDS: Multivitamin W/ Minerals 1 TAB PO SCH (08:07)
[2021-06-24] MEDS: Amiodarone 200 MG TAB PO SCH (08:07)
[2021-06-24] MEDS: guaiFENesin ER 600 MG TAB PO SCH ×2 (08:07→21:09)
[2021-06-24] MEDS: Zinc Sulfate 220 MG CAP PO SCH (08:07)
[2021-06-24] MEDS: Cholecalciferol 1,000 UNITS (25 MCG) TAB PO SCH (08:07)
[2021-06-24] MEDS: Ascorbic Acid 500 mg Chewable Tablet PO SCH (08:07)
[2021-06-24] MEDS: Dutasteride 0.5 MG CAP PO SCH (08:08)
[2021-06-24] MEDS: Fish Oil 1,000 MG CAP PO SCH (08:08)
[2021-06-24] MEDS ORDERED: VANCOMYCIN 1.75 GM/350 ML BAG 1.75 GM in Premix Bag 1 BAG IVPB SCH (11:00)
[2021-06-24] MEDS: Atorvastatin Calcium 40 MG TAB PO SCH (21:09)
[2021-06-25] MEDS: Vancomycin HCl 1 GM in Sodium Chloride 0.9% 250 ML 250 ML IVPB SCH ×2 (04:27→22:13)
[2021-06-25 04:35] LABS: Hemoglobin 9.1 g/dL (13.5-17.5); Mean Corpuscular HGB CONC 30.3 g/dL (32.0-36.0); Mean Corpuscular Hemoglobin 24.9 pg (27.0-33.0); Mean Corpuscular Volume 82.2 fl (81.2-95.1); Mean Platelet Volume 9.5 fl (7.4-10.4); Platelet Count 298 10x3/uL (150-450); RBC Distribution Width 19.6 % (11.5-14.5); Red Blood Cell (RBC) Count 3.65 10x6/uL (4.32-5.72); White Blood Cell (WBC) Count 12.3 10x3/uL (3.5-10.5)
[2021-06-25 04:44] LABS: Anion Gap 14 mmol/L (10-20); BUN (Urea Nitrogen) 16 mg/dL (8.4-25.7); Calc. Creatinine Clearance 82 mL/min (70-130); Calcium 8.6 mg/dL (7.8-10.44); Carbon Dioxide 33 mmol/L (23-31); Chloride 93 mmol/L (98-107); Glucose 107 mg/dL (83-110); Potassium 3.7 mmol/L (3.5-5.1); Sodium 136 mmol/L (136-145)
[2021-06-25] MEDS: Meropenem 1 GM in Sodium Chloride 0.9% 100 ML IVPB SCH ×3 (05:29→21:53)
[2021-06-25] MEDS: Levothyroxine Sodium 50 MCG TAB PO SCH (05:29)
[2021-06-25] MEDS: Furosemide 40 MG/4 ML VIAL SLOW IVP SCH ×2 (05:29→14:45)
[2021-06-25] MEDS: Liothyronine Sodium 5 MCG TAB PO SCH (05:29)
[2021-06-25 08:26] LABS: MDiff Complete? YES
[2021-06-25 08:30] LABS: Eosinophils 25 % (0-10); Lymphocytes 7 % (21-51); Monocytes 4 % (0-10); Neutrophil 63 % (42-75); Reactive Lymphocytes 1 % (0-10)
[2021-06-25 08:31] LABS: Platelet Morphology Comment Appears Adequate
[2021-06-25 08:33] LABS: Elliptocytes SLIGHT = 2-5 cells (100X) (0-1/hpf); Ovalocytes SLIGHT = 2-5 cells (100X) (0-1/hpf)
[2021-06-25] MEDS: Cholecalciferol 1,000 UNITS (25 MCG) TAB PO SCH (08:54)
[2021-06-25] MEDS: Amiodarone 200 MG TAB PO SCH (08:54)
[2021-06-25] MEDS: Tamsulosin HCl 0.4 MG CAP PO SCH (08:55)
[2021-06-25] MEDS: Ascorbic Acid 500 mg Chewable Tablet PO SCH (08:55)
[2021-06-25] MEDS: Calcium Carbonate 500 MG ChewTAB PO SCH ×2 (08:55→21:53)
[2021-06-25] MEDS: Enoxaparin Sodium 40 MG/0.4 ML SYRINGE SC SCH (08:56)
[2021-06-25] MEDS: guaiFENesin ER 600 MG TAB PO SCH ×2 (09:02→21:53)
[2021-06-25] MEDS: Zinc Sulfate 220 MG CAP PO SCH (09:03)
[2021-06-25] MEDS: Multivitamin W/ Minerals 1 TAB PO SCH (09:44)
[2021-06-25] MEDS: Dutasteride 0.5 MG CAP PO SCH (09:44)
[2021-06-25] MEDS: Fish Oil 1,000 MG CAP PO SCH (09:44)
[2021-06-25 16:15] LABS: Vancomycin, Trough 19.2 ug/mL
[2021-06-25] MEDS: Docusate 100 MG CAP PO PRN (16:59)
[2021-06-25 17:45] LABS: Glucose 102 mg/dL (83-110)
[2021-06-25] MEDS: Atorvastatin Calcium 40 MG TAB PO SCH (21:53)
[2021-06-26 04:54] LABS: Anion Gap 12 mmol/L (10-20); BUN (Urea Nitrogen) 15 mg/dL (8.4-25.7); Calc. Creatinine Clearance 84 mL/min (70-130); Calcium 8.7 mg/dL (7.8-10.44); Carbon Dioxide 34 mmol/L (23-31); Chloride 97 mmol/L (98-107); Glucose 96 mg/dL (83-110); Potassium 3.7 mmol/L (3.5-5.1); Sodium 139 mmol/L (136-145)
[2021-06-26 05:33] LABS: Hemoglobin 8.6 g/dL (13.5-17.5); Mean Corpuscular HGB CONC 30.4 g/dL (32.0-36.0); Mean Corpuscular Hemoglobin 24.6 pg (27.0-33.0); Mean Corpuscular Volume 81.1 fl (81.2-95.1); Mean Platelet Volume 9.3 fl (7.4-10.4); Platelet Count 286 10x3/uL (150-450); RBC Distribution Width 19.7 % (11.5-14.5); Red Blood Cell (RBC) Count 3.49 10x6/uL (4.32-5.72); White Blood Cell (WBC) Count 11.5 10x3/uL (3.5-10.5)
[2021-06-26 06:12] LABS: MDiff Complete? YES; Platelet Morphology Comment Appears Adequate
[2021-06-26 06:13] LABS: Elliptocytes SLIGHT = 2-5 cells (100X) (0-1/hpf)
[2021-06-26 06:15] LABS: Eosinophils 25 % (0-10); Lymphocytes 14 % (21-51); Monocytes 5 % (0-10); Neutrophil 56 % (42-75)
[2021-06-26] MEDS: Meropenem 1 GM in Sodium Chloride 0.9% 100 ML IVPB SCH ×3 (06:28→18:40)
[2021-06-26] MEDS: Furosemide 40 MG/4 ML VIAL SLOW IVP SCH ×2 (06:31→16:22)
[2021-06-26] MEDS: Liothyronine Sodium 5 MCG TAB PO SCH (06:32)
[2021-06-26] MEDS: Levothyroxine Sodium 50 MCG TAB PO SCH (06:32)
[2021-06-26] MEDS: Ascorbic Acid 500 mg Chewable Tablet PO SCH (08:29)
[2021-06-26] MEDS: Calcium Carbonate 500 MG ChewTAB PO SCH ×2 (08:29→21:11)
[2021-06-26] MEDS: Multivitamin W/ Minerals 1 TAB PO SCH (08:30)
[2021-06-26] MEDS: Dutasteride 0.5 MG CAP PO SCH (08:30)
[2021-06-26] MEDS: Cholecalciferol 1,000 UNITS (25 MCG) TAB PO SCH (08:30)
[2021-06-26] MEDS: Tamsulosin HCl 0.4 MG CAP PO SCH (08:31)
[2021-06-26] MEDS: Fish Oil 1,000 MG CAP PO SCH (08:31)
[2021-06-26] MEDS: Enoxaparin Sodium 40 MG/0.4 ML SYRINGE SC SCH (08:33)
[2021-06-26] MEDS: Amiodarone 200 MG TAB PO SCH (08:34)
[2021-06-26] MEDS: Docusate 100 MG CAP PO PRN (08:38)
[2021-06-26] MEDS: Zinc Sulfate 220 MG CAP PO SCH (09:50)
[2021-06-26] MEDS: Cyanocobalamin 1000 MCG/ML VIAL IM SCH (09:50)
[2021-06-26] MEDS: guaiFENesin ER 600 MG TAB PO SCH ×2 (09:50→21:11)
[2021-06-26] MEDS: Vancomycin HCl 1 GM in Sodium Chloride 0.9% 250 ML 250 ML IVPB SCH (16:23)
[2021-06-26 16:37] LABS: Vancomycin, Trough 17.1 ug/mL
[2021-06-26 16:48] LABS: Glucose 81 mg/dL (83-110)
[2021-06-26] MEDS: Atorvastatin Calcium 40 MG TAB PO SCH (21:11)
[2021-06-26 22:09] LABS: Glucose 154 mg/dL (83-110)
[2021-06-27] MEDS: Meropenem 1 GM in Sodium Chloride 0.9% 100 ML IVPB SCH ×3 (01:34→17:18)
[2021-06-27 04:54] LABS: #Basophils 0.1 10x3/uL (0.0-0.2); #Eosinphils 1.9 10x3/uL (0.0-0.5); #Monocytes 0.9 10x3/uL (0.0-1.1); #Neutrophils 5.5 10x3/uL (1.5-8.4); %Basophils 0.5 % (0.0-2.0); %Eosinophils 19.4 % (0.0-6.0); %Lymphocytes 15.3 % (18.0-47.0); %Monocytes 8.7 % (0.0-10.0); %Neutrophils 55.6 % (40.0-75.0); Hemoglobin 8.9 g/dL (13.5-17.5); Mean Corpuscular HGB CONC 31.1 g/dL (32.0-36.0); Mean Corpuscular Hemoglobin 25.2 pg (27.0-33.0); Mean Platelet Volume 9.3 fl (7.4-10.4); Platelet Count 285 10x3/uL (150-450); Red Blood Cell (RBC) Count 3.53 10x6/uL (4.32-5.72)
[2021-06-27 05:32] LABS: Anion Gap 14 mmol/L (10-20); BUN (Urea Nitrogen) 17 mg/dL (8.4-25.7); Calc. Creatinine Clearance 86 mL/min (70-130); Calcium 8.5 mg/dL (7.8-10.44); Carbon Dioxide 34 mmol/L (23-31); Chloride 97 mmol/L (98-107); Glucose 104 mg/dL (83-110); Potassium 3.7 mmol/L (3.5-5.1); Sodium 141 mmol/L (136-145)
[2021-06-27] MEDS: Liothyronine Sodium 5 MCG TAB PO SCH (06:16)
[2021-06-27] MEDS: Furosemide 40 MG/4 ML VIAL SLOW IVP SCH ×2 (06:16→12:43)
[2021-06-27] MEDS: Levothyroxine Sodium 50 MCG TAB PO SCH (06:16)
[2021-06-27] MEDS: guaiFENesin ER 600 MG TAB PO SCH ×2 (08:56→20:49)
[2021-06-27] MEDS: Amiodarone 200 MG TAB PO SCH (08:56)
[2021-06-27] MEDS: Zinc Sulfate 220 MG CAP PO SCH (08:56)
[2021-06-27] MEDS: Fish Oil 1,000 MG CAP PO SCH (08:56)
[2021-06-27] MEDS: Tamsulosin HCl 0.4 MG CAP PO SCH (08:57)
[2021-06-27] MEDS: Multivitamin W/ Minerals 1 TAB PO SCH (08:57)
[2021-06-27] MEDS: Calcium Carbonate 500 MG ChewTAB PO SCH ×2 (08:57→20:49)
[2021-06-27] MEDS: Dutasteride 0.5 MG CAP PO SCH (08:57)
[2021-06-27] MEDS: Ascorbic Acid 500 mg Chewable Tablet PO SCH (08:57)
[2021-06-27] MEDS: Enoxaparin Sodium 40 MG/0.4 ML SYRINGE SC SCH (08:58)
[2021-06-27] MEDS: Cholecalciferol 1,000 UNITS (25 MCG) TAB PO SCH (08:58)
[2021-06-27] MEDS: Vancomycin HCl 1 GM in Sodium Chloride 0.9% 250 ML 250 ML IVPB SCH (12:43)
[2021-06-27] MEDS: Atorvastatin Calcium 40 MG TAB PO SCH (20:49)
[2021-06-27 21:48] LABS: Glucose 118 mg/dL (83-110)
[2021-06-28] MEDS: Meropenem 1 GM in Sodium Chloride 0.9% 100 ML IVPB SCH ×3 (02:07→17:27)
[2021-06-28 04:53] LABS: #Basophils 0.1 10x3/uL (0.0-0.2); #Eosinphils 1.8 10x3/uL (0.0-0.5); #Monocytes 0.9 10x3/uL (0.0-1.1); #Neutrophils 5.6 10x3/uL (1.5-8.4); %Basophils 0.6 % (0.0-2.0); %Eosinophils 18.4 % (0.0-6.0); %Lymphocytes 13.8 % (18.0-47.0); %Neutrophils 57.8 % (40.0-75.0); Hemoglobin 8.9 g/dL (13.5-17.5); Mean Corpuscular HGB CONC 31.4 g/dL (32.0-36.0); Mean Corpuscular Hemoglobin 25.5 pg (27.0-33.0); Mean Corpuscular Volume 81.1 fl (81.2-95.1); Mean Platelet Volume 9.6 fl (7.4-10.4); Platelet Count 285 10x3/uL (150-450); RBC Distribution Width 19.9 % (11.5-14.5); Red Blood Cell (RBC) Count 3.49 10x6/uL (4.32-5.72); White Blood Cell (WBC) Count 9.7 10x3/uL (3.5-10.5)
[2021-06-28 04:58] LABS: Vancomycin, Trough 18.4 ug/mL
[2021-06-28 05:14] LABS: Anion Gap 12 mmol/L (10-20); BUN (Urea Nitrogen) 17 mg/dL (8.4-25.7); Calc. Creatinine Clearance 84 mL/min (70-130); Calcium 8.5 mg/dL (7.8-10.44); Carbon Dioxide 35 mmol/L (23-31); Chloride 97 mmol/L (98-107); Glucose 98 mg/dL (83-110); Potassium 3.6 mmol/L (3.5-5.1); Sodium 140 mmol/L (136-145)
[2021-06-28] MEDS: Furosemide 40 MG/4 ML VIAL SLOW IVP SCH ×2 (05:54→15:08)
[2021-06-28] MEDS: Liothyronine Sodium 5 MCG TAB PO SCH (05:54)
[2021-06-28] MEDS: Levothyroxine Sodium 50 MCG TAB PO SCH (05:54)
[2021-06-28] MEDS: Enoxaparin Sodium 40 MG/0.4 ML SYRINGE SC SCH (08:38)
[2021-06-28] MEDS: guaiFENesin ER 600 MG TAB PO SCH ×2 (08:39→21:10)
[2021-06-28] MEDS: Calcium Carbonate 500 MG ChewTAB PO SCH ×2 (08:39→21:10)
[2021-06-28] MEDS: Ascorbic Acid 500 mg Chewable Tablet PO SCH (08:39)
[2021-06-28] MEDS: Fish Oil 1,000 MG CAP PO SCH (08:40)
[2021-06-28] MEDS: Tamsulosin HCl 0.4 MG CAP PO SCH (08:40)
[2021-06-28] MEDS: Cholecalciferol 1,000 UNITS (25 MCG) TAB PO SCH (08:41)
[2021-06-28] MEDS: Multivitamin W/ Minerals 1 TAB PO SCH (08:41)
[2021-06-28] MEDS: Amiodarone 200 MG TAB PO SCH (08:41)
[2021-06-28] MEDS: Zinc Sulfate 220 MG CAP PO SCH (10:38)
[2021-06-28] MEDS: Dutasteride 0.5 MG CAP PO SCH (10:38)
[2021-06-28 13:49] VITALS: BMI 31.6
[2021-06-28 21:09] LABS: Glucose 133 mg/dL (83-110)
[2021-06-28] MEDS: Atorvastatin Calcium 40 MG TAB PO SCH (21:11)
[2021-06-29] MEDS: Meropenem 1 GM in Sodium Chloride 0.9% 100 ML IVPB SCH ×3 (01:18→17:13)
[2021-06-29] MEDS: Liothyronine Sodium 5 MCG TAB PO SCH (06:11)
[2021-06-29] MEDS: Levothyroxine Sodium 50 MCG TAB PO SCH (06:12)
[2021-06-29] MEDS: Furosemide 40 MG/4 ML VIAL SLOW IVP SCH ×2 (07:35→12:39)
[2021-06-29] MEDS ORDERED: Furosemide 40 MG TAB PO SCH (08:00)
[2021-06-29] MEDS: Ascorbic Acid 500 mg Chewable Tablet PO SCH (10:18)
[2021-06-29] MEDS: Amiodarone 200 MG TAB PO SCH (10:18)
[2021-06-29] MEDS: Calcium Carbonate 500 MG ChewTAB PO SCH (10:18)
[2021-06-29] MEDS: guaiFENesin ER 600 MG TAB PO SCH (10:19)
[2021-06-29] MEDS: Tamsulosin HCl 0.4 MG CAP PO SCH (10:19)
[2021-06-29] MEDS: Multivitamin W/ Minerals 1 TAB PO SCH (10:19)
[2021-06-29] MEDS: Enoxaparin Sodium 40 MG/0.4 ML SYRINGE SC SCH (10:19)
[2021-06-29] MEDS: Dutasteride 0.5 MG CAP PO SCH (10:19)
[2021-06-29] MEDS: Zinc Sulfate 220 MG CAP PO SCH (10:19)
[2021-06-29] MEDS: Cholecalciferol 1,000 UNITS (25 MCG) TAB PO SCH (10:19)
[2021-06-29] MEDS: Fish Oil 1,000 MG CAP PO SCH (10:19)
[2021-06-29 17:38] VITALS: BP 118/58; TEMP 96.6
== END 2021-06-29 17:46 | disposition short-term general hospital (02) | DRG 871 ==
LOC: CSHERS 08:37 → CSHTELE 15:38 → OBSVTOIN 15:39 → CSHICU 18:35 → CSHTELE 06-25 13:24
PROVIDERS: ADMIT Family Medicine; ATTEND Internal Medicine
PROC: 8E0ZXY6 Isolation (ICD-10-PCS; principal; 2021-06-08)
PROC: 3E03329 Introduction of Other Anti-infective into Peripheral Vein, Percutaneous Approach (ICD-10-PCS; 2021-06-08)
PROC: 5A09457 Assistance with Respiratory Ventilation, 24-96 Consecutive Hours, Continuous Positive Airway Pressure (ICD-10-PCS; 2021-06-16)
DX: A41.9 Sepsis, unspecified organism (principal); J96.01 Acute respiratory failure with hypoxia; U07.1 COVID-19; J85.1 Abscess of lung with pneumonia; G93.41 Metabolic encephalopathy; I50.33 Acute on chronic diastolic (congestive) heart failure; N17.9 Acute kidney failure, unspecified; N20.1 Calculus of ureter; R65.20 Severe sepsis without septic shock; E03.9 Hypothyroidism, unspecified; I11.0 Hypertensive heart disease with heart failure; I48.0 Paroxysmal atrial fibrillation; K21.9 Gastro-esophageal reflux disease without esophagitis; E78.5 Hyperlipidemia, unspecified; N40.0 Benign prostatic hyperplasia without lower urinary tract symptoms; G47.33 Obstructive sleep apnea (adult) (pediatric); Z88.0 Allergy status to penicillin; Z88.1 Allergy status to other antibiotic agents; Z79.899 Other long term (current) drug therapy; Z90.49 Acquired absence of other specified parts of digestive tract; Z90.89 Acquired absence of other organs; Z98.890 Other specified postprocedural states
CPT/HCPCS: 36415; 36416; 36600; 71045; 71046; 71260; 71275; 74177; 80048; 80053; 80202; 81003; 81015; 82805; 83036; 83605; 83735; 83880; 84100; 84145; 84484; 85025; 85027; 85060; 85379; 86140; 87040; 87081; 87086; 87449; 87899; 93005; 93306; 94640; 94660; 94760; 96365; 96366; 96368; 96375; J0456; J1100; J1650; J1815; J1940; J1956; J2185; J2270; J3370; J3420; J3490; J7050; U0002